=== PATIENT | female | born 1995 | race Caucasian/White ===

== ENCOUNTER 2017-04-29 19:49 | Emergency (ER) | payer OTHER ==
[2017-04-29 19:57] VITALS: BP 122/80
[2017-04-29] MEDS ORDERED: predniSONE 20 MG TABLET PO STA (20:09)
--- NOTE | 2017-04-29 20:13 | ED Physician Documentation ---
PD HPI SKIN - Stated complaint Stated Complaint: RASH - Chief complaint Chief Complaint: Wound - History obtained from History obtained from: Patient - History of Present Illness Timing - onset: How many days ago (3) Timing - duration: Days (3) Timing - details: Gradual onset Pain level max: 1 Pain level now: 1 Location: Other (R inguinal fold) Quality / character: Itchy, Painful, Discolored (erythematous) Improved by: Other (hasn't tried anything) Worsened by (comment): COMMENT (nothing) Associated symptoms: No: Fever, Myalgias, Joint pain, Headache, Facial swelling , Dyspnea, Abd pain, N/V/D Contributing factors: No: Exposed to medication, Exposed to food, Exposed to soap / lotion, Exposed to Poison ashley/oak, Insect bite /sting, Recent illness Similar symptoms before: Has not had sx before Recently seen: Not recently seen Review of Systems : denies: Now [facility] PD PAST MEDICAL HISTORY - Past Medical History Past Medical History: No - Past Surgical History Past Surgical History: No - Present Medications Home Medications: Ambulatory Orders Medication Instructions Recorded Confirmed Bacterial Vaginosis Medication 04/29/17 Control Pill 04/29/17 Nystatin/Triamcin 1 applic TP BID #1 cream..g. 04/29/17 [Nystatin-Triamcinolone Cream] - Allergies Allergies/Adverse Reactions: Allergies Allergy/AdvReac Type Severity Reaction Status Date / Time No Known Drug Allergies Allergy Verified 04/29/17 19:54 - Social History Does the pt smoke?: No Smoking Status: Never smoker Does the pt drink ETOH?: No Does the pt have substance abuse?: No - Immunizations Immunizations are current?: Yes - POLST Patient has POLST: No PD ED PE NORMAL - Vitals Vital signs reviewed: Yes - General General: Alert and oriented X 3, No acute distress - Derm Derm: Warm and dry, Other (erythematous, raised rash to the R inguinal fold. Satellite lesions present. no vesicles, no pustules, no crusting.) - Neuro Neuro: Alert and oriented X 3 - Psych Psych: Normal mood, Normal affect Results - Vitals Vitals: Vital Signs - 24 hr 04/29/17 19:52 Temperature 36.7 C Heart Rate 64 Respiratory 17 Rate Blood Pressure 122/80 O2 Saturation 100 Oxygen O2 Source Room air PD MEDICAL DECISION MAKING - ED course Complexity details: considered differential, d/w patient ED course: Patient presents to the emergency department with a rash to the right inguinal fold, appears to be a candidal rash. Will place on nystatin for home with her doctor. She is well-appearing, nontoxic. Afebrile. No evidence of secondary infection. Patient is not , breast-feeding or trying to become . Patient counseled regarding signs and symptoms for which I believe and urgent re-evaluation would be necessary. Patient with good understanding of and agreement to plan and is comfortable going home at this time This document was made in part using voice recognition software. While efforts are made to proofread this document, sound alike and grammatical errors may occur. Departure - Departure Disposition: 01 Home, Self Care Clinical Impression: Candidiasis Condition: Good Instructions: ED Candidiasis Cutaneous Follow-Up: Khari Sainz DO [Primary Care Provider] - Within 1 week Prescriptions: Nystatin/Triamcin [Nystatin-Triamcinolone Cream] 1 applic TP BID #1 cream..g. Comments: Return if you worsen. Discharge Date/Time: 04/29/17 20:20
[2017-04-29] MEDS ORDERED: predniSONE 20 MG TABLET ONE (20:14)
== END 2017-04-29 20:20 | disposition home or self-care (01) ==
LOC: ED 19:49
DX: B37.9 Candidiasis, unspecified (principal)
CPT/HCPCS: 99283; J7512

== ENCOUNTER 2017-09-15 15:42 | Emergency (ER) | payer OTHER ==
[2017-09-15] MEDS ORDERED: PROCHLORPERAZINE 10 MG/2 ML VIAL IVP STA (18:06)
[2017-09-15] MEDS ORDERED: diphenhydrAMINE INJ 50 MG/ML VIAL IVP STA (18:06)
[2017-09-15] MEDS ORDERED: KETOROLAC 60 MG/2 ML VIAL IVP STA (18:06)
[2017-09-15] MEDS ORDERED: SODIUM CHLORIDE 0.9% 1,000 ML IV ONE (18:06)
--- NOTE | 2017-09-15 18:08 | ED Physician Documentation ---
History of Present Illness - Stated complaint Stated Complaint: VOMITING, LEIJA - Chief complaint Chief Complaint: Abd Pain - History obtained from History obtained from: Patient, Family - History of Present Illness Timing: Today Pain level max: 8 Pain level now: 8 Improved by: dark room Worsened by: light, noise - Additonal information Additional information: L sided headache, states similar to prior migraines, began vomiting so did not take any meds [employer]. Review of Systems Ten Systems: 10 systems reviewed and negative Constitutional: denies: Fever, Chills Eyes: reports: Photophobia Ears: denies: Ear pain Nose: denies: Rhinorrhea / runny nose, Congestion Throat: denies: Sore throat Cardiac: denies: Chest pain / pressure Respiratory: denies: Cough GI: denies: Abdominal Pain, Nausea, Vomiting, Diarrhea Skin: denies: Rash Musculoskeletal: denies: Neck pain, Back pain Neurologic: denies: Headache PD PAST MEDICAL HISTORY - Past Medical History Past Medical History: No - Past Surgical History Past Surgical History: No - Present Medications Home Medications: Ambulatory Orders Medication Instructions Recorded Confirmed Bacterial Vaginosis Medication 04/29/17 Control Pill 04/29/17 Nystatin/Triamcin 1 applic TP BID #1 cream..g. 04/29/17 [Nystatin-Triamcinolone Cream] - Allergies Allergies/Adverse Reactions: Allergies Allergy/AdvReac Type Severity Reaction Status Date / Time No Known Drug Allergies Allergy Verified 09/15/17 16:02 - Living Situation Living Situation: reports: With family Living Arrangement: reports: At home - Social History Does the pt smoke?: No Smoking Status: Never smoker Does the pt drink ETOH?: No Does the pt have substance abuse?: No - Immunizations Immunizations are current?: Yes - POLST Patient has POLST: No PD ED PE NORMAL - Vitals Vital signs reviewed: Yes - General General: Alert and oriented X 3, No acute distress - HEENT HEENT: Atraumatic, PERRL, EOMI, Moist mucous membranes - Neck Neck: Supple, no meningeal sign - Cardiac Cardiac: RRR - Respiratory Respiratory: No respiratory distress, Clear bilaterally - Abdomen Abdomen: Soft, Non tender, Non distended - Derm Derm: Warm and dry - Neuro Neuro: Alert and oriented X 3, instrument and 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 Resolved with Toradol, Benadryl and Compazine. Given IV fluids as well. Tolerating p.o. without difficulty. Will follow up with her doctor for further evaluation and care. Patient counseled regarding signs and symptoms for which I believe and urgent re-evaluation would be necessary. Patient with good understanding of and agreement to plan and is comfortable going home at this time This document was made in part using voice recognition software. While efforts are made to proofread this document, sound alike and grammatical errors may occur. Departure - Departure Disposition: 01 Home, Self Care Clinical Impression: Migraine Qualifiers: Migraine type: unspecified Status migrainosus presence: without status migrainosus Intractability: not intractable Qualified Code(s): G43.909 - Migraine, unspecified, not intractable, without status migrainosus Condition: Good Instructions: ED Headache Migraine Follow-Up: Khari Sainz DO [Primary Care Provider] - Within 1 week Comments: Do not drive or operate heavy machinery for at least the next 12 hours. Return if you worsen. Discharge Date/Time: 09/15/17 19:28
[2017-09-15 19:17] VITALS: BP 123/82
== END 2017-09-15 19:28 | disposition home or self-care (01) ==
LOC: ED 15:42
DX: G43.909 Migraine, unspecified, not intractable, without status migrainosus (principal)
CPT/HCPCS: 96361; 96374; 96375; 99283; 99284

== ENCOUNTER 2017-09-15 21:47 | Emergency (ER) | payer OTHER ==
[2017-09-15 21:53] VITALS: BP 111/71
--- NOTE | 2017-09-15 22:06 | ED Physician Documentation ---
PD HPI FEMALE - Stated complaint Stated Complaint: FREQ URINATION - Chief complaint Chief Complaint: UTI - History obtained from History obtained from: Patient, Family - History of Present Illness Timing - onset: How many hours ago (1) Timing - duration: Hours (1) Timing - details: Abrupt onset Pain level max: 9 Pain level max: 9 Associated symptoms: Dysuria, Urinary frequency. No: Fever, Abdominal pain, Back pain, Pelvic pain, Vaginal pain, Vaginal bleeding, Vaginal discharge Contributing factors: No: Similar symptoms before: Diagnosis (UTI) Recently seen: Emergency Dept (seen here earlier for migraine headache) Review of Systems Constitutional: denies: Fever, Chills Respiratory: denies: Cough GI: denies: Abdominal Pain, Vomiting, Diarrhea : reports: Dysuria, Frequency, Hesitancy PD PAST MEDICAL HISTORY - Past Medical History Past Medical History: No - Past Surgical History Past Surgical History: No - Present Medications Home Medications: Ambulatory Orders Medication Instructions Recorded Confirmed Control Pill 04/29/17 Nitrofurantoin Monohyd/M-Cryst 100 mg PO BID #10 capsule 09/15/17 [Macrobid 100 mg Capsule] Phenazopyridine HCl [Pyridium] 200 mg PO TID PRN #6 tablet 09/15/17 - Allergies Allergies/Adverse Reactions: Allergies Allergy/AdvReac Type Severity Reaction Status Date / Time No Known Drug Allergies Allergy Verified 09/15/17 21:53 - Social History Does the pt smoke?: No Smoking Status: Never smoker Does the pt drink ETOH?: No Does the pt have substance abuse?: No - Immunizations Immunizations are current?: Yes - POLST Patient has POLST: No PD ED PE NORMAL - Vitals Vital signs reviewed: Yes - General General: Alert and oriented X 3, No acute distress - Neck Neck: Supple, no meningeal sign - Cardiac Cardiac: RRR - Respiratory Respiratory: No respiratory distress, Clear bilaterally - Abdomen Abdomen: Soft, Non tender, Non distended - Back Back: No CVA TTP - Derm Derm: Warm and dry - Neuro Neuro: Alert and oriented X 3 Results - Vitals Vitals: Vital Signs - 24 hr 09/15/17 21:50 Temperature 36.5 C Heart Rate 100 Respiratory 18 Rate Blood Pressure 111/71 O2 Saturation 99 Oxygen O2 Source Room air - Labs Labs: Laboratory Tests 09/15/17 22:00 Urine Color YELLOW Urine Clarity HAZY Urine pH 6.5 Ur Specific [place] >=1.030 H Urine Protein 100 H Urine Glucose (UA) NEGATIVE Urine Ketones 15 H Urine Occult Blood TRACE-INTA Urine Nitrite NEGATIVE Urine Bilirubin NEGATIVE Urine Urobilinogen 0.2 (NORMAL) Ur Leukocyte Esterase NEGATIVE Urine RBC 0-5 Urine WBC 11-25 H Ur Squamous Epith Cells MANY Squamous H Urine Bacteria Many H Ur Microscopic Review INDICATED Urine Culture Comments NOT INDICATED Urine HCG, Qual NEGATIVE PD MEDICAL DECISION MAKING - ED course Complexity details: reviewed results, re-evaluated patient, considered differential, d/w patient, d/w family ED course: Patient is a 22-year-old female who presents to the emergency department with what appear to be UTI symptoms. Urine is cloudy and consistent with UTI. Will place on antibiotics for home and have her follow-up with her doctor. No evidence of pyelonephritis. Patient counseled regarding signs and symptoms for which I believe and urgent re-evaluation would be necessary. Patient with good understanding of and agreement to plan and is comfortable going home at this time This document was made in part using voice recognition software. While efforts are made to proofread this document, sound alike and grammatical errors may occur. Departure - Departure Disposition: 01 Home, Self Care Clinical Impression: Urinary tract infection Qualifiers: Urinary tract infection type: acute cystitis Hematuria presence: without hematuria Qualified Code(s): N30.00 - Acute cystitis without hematuria Condition: Good Instructions: ED UTI Cystitis Female Follow-Up: Khari Sainz DO [Primary Care Provider] - As Needed Prescriptions: Nitrofurantoin Monohyd/M-Cryst [Macrobid 100 mg Capsule] 100 mg PO BID #10 capsule Phenazopyridine HCl [Pyridium] 200 mg PO TID PRN #6 tablet PRN Reason: dysuria Comments: Take all antibiotics until gone. Return if you worsen. Discharge Date/Time: 09/15/17 22:16
[2017-09-15] MEDS ORDERED: NITROFURANTOIN MACRO 100 MG CAPSULE PO STA (22:11)
[2017-09-15] MEDS ORDERED: PHENAZOPYRIDINE 100 MG TABLET PO STA (22:11)
[2017-09-15 22:17] LABS: GLUCOSE, URINE (UA) NEGATIVE (NEGATIVE); KETONES,URINE (UA) 15 mg/dL (NEGATIVE); LEUKOCYTE ESTERASE, URINE NEGATIVE (NEGATIVE); NITRITE,URINE NEGATIVE (NEGATIVE); OCCULT BLOOD,URINE TRACE-INTA (NEGATIVE); PH,URINE 6.5 PH (5.0-7.5); PROTEIN,URINE 100 mg/dL (NEGATIVE); UROBILINOGEN,URINE 0.2 (NORMAL) E.U./dL (NORMAL)
[2017-09-15 22:24] LABS: CLARITY,URINE HAZY (CLEAR)
[2017-09-15 22:33] LABS: BILIRUBIN,URINE NEGATIVE (NEGATIVE); HCG UR QUAL NEGATIVE; ICTOTEST,URINE NEGATIVE
[2017-09-15 22:51] LABS: BACTERIA,URINE Many /HPF (None Seen); RBC,URINE 0-5 /HPF (0-5); SQUAMOUS EPITHELIAL CELL,UR MANY Squamous (<= Few)
== END 2017-09-15 22:16 | disposition home or self-care (01) ==
LOC: ED 21:47
DX: N30.00 Acute cystitis without hematuria (principal); G43.909 Migraine, unspecified, not intractable, without status migrainosus
CPT/HCPCS: 81001; 81025; 96361; 96374; 96375; 99283; 99284; A9270; 81003; 87086

== ENCOUNTER 2023-07-17 12:30 | Outpatient (CLI) | payer OTHER ==
--- NOTE | 2023-07-18 15:57 | Ultrasound Report ---
LIMITED ULTRASOUND OF LEFT BREAST: 07/17/2023 CLINICAL: Occasional left breast pain. No prior exams were available for comparison. Color flow and real-time ultrasound of the left breast 3-4 o'clock region were performed. Vidal scal e images of the real-time examination were reviewed. No sonographic abnormalities in the left breast at the indicated areas of pain. IMPRESSION: NEGATIVE There are no abnormalities seen in the left breast to correspond with the pain at 3 and 4 o'clock whi ch is consistent with normal fibroglandular tissue. The patient should follow up with her primary care doctor for the symptoms. Screening mammography beginning at age 40 is recommended. Findings and recommendations were conveyed to the patient at time of exam. This exam was interpreted at Station ID: [id number]. Electronically Signed By: Akilah bain/:07/17/2023 13:35:12 letter sent: No_Letter Ultrasound BI-RADS: 1 Negative BI-RADS CATEGORY: (1) - 1 Unspecified - other recall n/a LATERALITY: (B)
== END 2023-07-17 12:31 | disposition home or self-care (01) ==
LOC: DI 12:30
PROVIDERS: ATTEND Family Medicine
DX: N64.4 Mastodynia (principal)

== ENCOUNTER 2023-07-23 07:16 | Outpatient (CLI) | payer OTHER ==
[2023-07-23 12:16] LABS: THYROID STIMULATING HORMONE 2.55 uIU/mL (0.34-5.60)
[2023-07-23 12:22] LABS: PROLACTIN 11.11 ng/mL
== END 2023-07-23 07:17 | disposition home or self-care (01) ==
LOC: LAB.N 07:16
PROVIDERS: ATTEND Family Medicine
DX: H53.9 Unspecified visual disturbance (principal); R53.83 Other fatigue
CPT/HCPCS: 36415; 84146; 84443

== ENCOUNTER 2023-07-23 07:45 | Outpatient (CLI) | payer OTHER ==
[2023-07-23 21:11] LABS: BACTERIAL VAGINOSIS DNA NEGATIVE (NEGATIVE); CANDIDA GLABRATA DNA NEGATIVE (NEGATIVE); CANDIDA GROUP DNA NEGATIVE (NEGATIVE); CANDIDA KRUSEI DNA NEGATIVE (NEGATIVE); TRICHOMONAS VAGINALIS DNA NEGATIVE (NEGATIVE)
[2023-07-23 22:22] LABS: CHLAMYDIA TRACHOMATIS DNA NEGATIVE (NEGATIVE); NEISSERIA GONORRHOEAE DNA NEGATIVE (NEGATIVE)
== END 2023-07-23 08:00 | disposition home or self-care (01) ==
LOC: LAB.N 07:45
PROVIDERS: ATTEND Physician Assistant Medical
DX: N89.8 Other specified noninflammatory disorders of vagina (principal); H53.9 Unspecified visual disturbance; R53.83 Other fatigue
CPT/HCPCS: 36415; 81514; 84146; 84443; 87491; 87591; 87661

== ENCOUNTER 2023-08-02 07:47 | Outpatient (CLI) | payer OTHER ==
--- NOTE | 2023-08-04 08:25 | MRI Report ---
PROCEDURE: BRAIN WO INDICATIONS: HOMONYMOUS FIELD DEFECTS TECHNIQUE: Noncontrast axial T1 spin echo, axial T2 fast spin echo, sagittal and axial FLAIR, coronal T2 fast sp in echo, axial gradient echo, axial diffusion and ADC through the brain. COMPARISON: None. FINDINGS: Image quality: Excellent. CSF Spaces: Basal cisterns are patent. No extra-axial fluid collections. Ventricles are normal in size and shape. Brain: No intracranial masses or hemorrhage. Vidal/white matter interface is normal. Brainstem appe ars normal. Diffusion-weighted images demonstrate no acute ischemic insult. No chronic ischemic ins ults. Normal intravascular flow voids are present. Skull and face: Calvarium has normal marrow signal. Orbits appear normal. Sinuses: Small right maxillary sinus retention cyst. Mild bilateral ethmoid sinus mucosal thickening. Sinuses and mastoids are otherwise clear. IMPRESSION: 1. No acute process. 2. No explanation for visual field defect. 3. No recent infarct. Reviewed by: Bri Multani MD on 08/04/2023 8:24 AM [facility] Approved by: Bri Multani MD on 08/04/2023 8:24 AM [facility] Station ID: [id number]
== END 2023-08-02 07:48 | disposition home or self-care (01) ==
LOC: DI 07:47
PROVIDERS: ATTEND Family Medicine
DX: H53.462 Homonymous bilateral field defects, left side (principal); H53.461 Homonymous bilateral field defects, right side

== ENCOUNTER 2024-04-27 10:23 | Emergency (ER) | payer OTHER ==
[2024-04-27 11:40] LABS: BASOPHILS # (AUTO) 0.1 10^3/uL (0.0-0.1); BASOPHILS % (AUTO) 0.8 %; EOSINOPHILS # (AUTO) 0.1 10^3/uL (0.0-0.7); EOSINOPHILS % (AUTO) 1.7 %; HCT - HEMATOCRIT 40.2 % (37.0-47.0); HGB - HEMOGLOBIN 13.5 g/dL (12.0-16.0); LYMPHOCYTES # (AUTO) 1.8 10^3/uL (1.5-3.5); LYMPHOCYTES % (AUTO) 29.4 %; MEAN CORPUSCULAR HEMOGLOBIN 30.8 pg (27.0-31.0); MEAN CORPUSCULAR HGB CONC 33.6 g/dL (32.0-36.0); MEAN CORPUSCULAR VOLUME 91.6 fL (81.0-99.0); MEAN PLATELET VOLUME 9.3 fL (7.9-10.8); MONOCYTES # (AUTO) 0.5 10^3/uL (0.0-1.0); MONOCYTES % (AUTO) 7.6 %; NEUTROPHILS # (AUTO) 3.6 10^3/uL (1.5-6.6); NEUTROPHILS % (AUTO) 60.2 %; PLT - PLATELET COUNT 268 10^3/uL (130-450); RED BLOOD COUNT 4.39 10^6/uL (4.20-5.40); RED CELL DISTRIBUTION WIDTH 11.7 % (12.0-15.0)
[2024-04-27 11:54] LABS: ALBUMIN 4.7 g/dL (3.2-5.5); ALBUMIN/GLOBULIN RATIO 1.5 (1.0-2.2); BILIRUBIN,TOTAL 0.5 mg/dL (0.2-1.0); CALCIUM 9.8 mg/dL (8.5-10.3); CREATININE 0.6 mg/dL (0.6-1.3); POTASSIUM 3.7 mmol/L (3.5-4.5); TOTAL PROTEIN 7.8 g/dL (6.4-8.9)
--- NOTE | 2024-04-27 12:35 | ED Physician Documentation ---
PD HPI ABD PAIN - Stated complaint Stated Complaint: ABX PX - Chief complaint Chief Complaint: Abd Pain - History obtained from History obtained from: Patient - History of Present Illness Timing - onset: How many weeks ago (1) Timing - duration: Weeks (1) Timing - details: Gradual onset, Still present, Constant Quality: Aching, Pain Location: Epigastric Radiation: No: Chest, Upper back Improved by: No: Eating, Meds (tried Tums and antacids without improvement.) Worsened by: No: Eating Associated symptoms: Nausea. No: Fever, Diarrhea, Constipation, Melena Recently seen: Clinic (went to clinic and Dx with likely GERD, to use antacids. No Rx or other meds suggested. Pt states continued pains and nausea since that without change.) Review of Systems Constitutional: denies: Fever, Chills GI: reports: Abdominal Pain, Nausea. 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 : None HEENT: None Psych: None Musculoskeletal: None Derm: None - Past Surgical History Past Surgical History: Yes HEENT: Rhinoplasty - Present Medications Home Medications: Ambulatory Orders Medication Instructions Recorded Confirmed Control Pill 04/29/17 Nitrofurantoin Monohyd/M-Cryst 100 mg PO BID #10 capsule 09/15/17 [Macrobid 100 mg Capsule] Phenazopyridine HCl [Pyridium] 200 mg PO TID PRN #6 tablet 09/15/17 HYDROcod/ACETAM 5/325 [Andrews 5/325] 1 ea PO Q6H PRN #14 tablet 04/27/24 Ondansetron Odt [Zofran] 4 mg TL Q6H PRN #20 tablet 04/27/24 Pantoprazole [Protonix] 40 mg PO DAILY 30 Days #30 tablet 04/27/24 Sucralfate [Carafate] 1 gm PO ACHS 7 Days #280 ml 04/27/24 - Allergies Allergies/Adverse Reactions: Allergies Allergy/AdvReac Type Severity Reaction Status Date / Time No Known Drug Allergies Allergy Verified 04/27/24 11:13 - Social History Does the pt smoke?: No Smoking Status: Never smoker Does the pt drink ETOH?: No Does the pt have substance abuse?: No - Immunizations Immunizations are current?: Yes - POLST Patient has POLST: No PD ED PE NORMAL - Vitals Vital signs reviewed: Yes - General General: Alert and oriented X 3, Well developed/nourished - Cardiac Cardiac: RRR, No murmur - Respiratory Respiratory: No respiratory distress, Clear bilaterally - Abdomen Abdomen: Normal bowel sounds, Soft, Non distended, No organomegaly, Other (tender epigastric area with some guarding. Some tender RUQ but not mainly. Lower abd not tender. ) Results - Vitals Vitals: Vital Signs - 24 hr 04/27/24 04/27/24 04/27/24 11:14 12:42 14:10 Temperature 37 C Heart Rate 73 67 72 Respiratory 16 16 16 Rate Blood Pressure 119/80 128/85 H 102/77 O2 Saturation 100 99 99 04/27/24 15:40 Temperature 37 C Heart Rate 76 Respiratory 16 Rate Blood Pressure 112/72 O2 Saturation 100 Oxygen O2 Source Room air - Labs Labs: Laboratory Tests 04/27/24 04/27/24 04/27/24 11:36 11:36 11:36 WBC 6.0 RBC 4.39 Hgb 13.5 Hct 40.2 MCV 91.6 MCH 30.8 MCHC 33.6 RDW 11.7 L Plt Count 268 MPV 9.3 Neut # (Auto) 3.6 Lymph # (Auto) 1.8 Owen # (Auto) 0.5 Eos # (Auto) 0.1 Baso # (Auto) 0.1 Absolute Nucleated RBC 0.00 Nucleated RBC % 0.0 Sodium 138 Potassium 3.7 Chloride 103 Carbon Dioxide 30 Anion Gap 5.0 L BUN 15 Creatinine 0.6 Estimated GFR (MDRD) 118 Glucose 91 Calcium 9.8 Total Bilirubin 0.5 AST 16 ALT 20 Alkaline Phosphatase 79 Total Protein 7.8 Albumin 4.7 Globulin 3.1 Albumin/Globulin Ratio 1.5 Lipase 25 Urine Color YELLOW Urine Clarity CLEAR Urine pH 6.0 Ur Specific [place] 1.015 Urine Protein NEGATIVE Urine Glucose (UA) NEGATIVE Urine Ketones NEGATIVE Urine Occult Blood TRACE-LYSE Urine Nitrite NEGATIVE Urine Bilirubin NEGATIVE Urine Urobilinogen 0.2 (NORMAL) Ur Leukocyte Esterase NEGATIVE Ur Microscopic Review NOT INDICATED Urine Culture Comments NOT INDICATED Urine HCG, Qual NEGATIVE - Rads (name of study) abd/pelvic CT Relevant Findings:: Prelim report reviewed, EMP independent interpretation of test (no acute process seen. ) PD Medical Decision Making - ED course Complexity details: reviewed results (LFTs and lipase normal. CT did not show acute process. With that, I would assume gastritis/ulcer/duodenitis. She did not feel need for BM here in ER, so gave spec cup to bring to PCP f/u, to test for h.pylori.), re-evaluated patient (improved with meds of Zofran, tylenol, lido viscous. Subsequently given carafate and pantoprazole. ), considered differential, d/w patient Departure - Departure Disposition: Home, Self Care Clinical Impression: Abdominal pain Qualifiers: Abdominal location: epigastric Qualified Code(s): R10.13 - Epigastric pain Condition: Stable Instructions: ED PUD Vs Gastritis, ED Epigastric Pain [facility] Follow-Up: Sandra Grant ARNP [Primary Care Provider] - Prescriptions: Sucralfate [Carafate] 1 gm PO ACHS 7 Days #280 ml HYDROcod/ACETAM 5/325 [Andrews 5/325] 1 ea PO Q6H PRN #14 tablet PRN Reason: Pain Pantoprazole [Protonix] 40 mg PO DAILY 30 Days #30 tablet Ondansetron Odt [Zofran] 4 mg TL Q6H PRN #20 tablet PRN Reason: Nausea / Vomiting Comments: Your CT scan did not show any acute abnormality. This certainly does not mean your not having pains there we just need to consider causes that would not be visible on the blood tests or CT scan. The idea of a ulcer in the stomach or duodenum often does not show on scanning images. Will treat it as such with a combination of acid reducing medicine daily for the next month called pantoprazole along with medication to coat your stomach lining several times daily initially for the next 5 or 6 days and then at nighttime in particular for another week or so. In addition you can use Tylenol every 4-6 hours if needed for pain. You can use the lidocaine numbing medicine combined with antacid such as Maalox or Mylanta if needed through the day as well. Avoid anti-inflammatory such as ibuprofen and naproxen. Sometimes a ulcer type condition can result from a infection in the stomach lining. We did not not need to have a bowel movement here in the ER today but on a follow-up visit to your primary care, the night or day of going to the appointment, you can bring us stool sample for which they can test for the H. pylori bacteria. I sent your prescriptions to your preferred pharmacy. I did prescribe ondansetron for nausea and if you need for worse pain, hydrocodone/acetaminophen. Return if worsening despite the above medications. Try to get a follow-up appointment with your primary care later this week or early next week, call today or tomorrow for an appointment. I am prescribing a short course of narcotic pain medication for you. These are potentially dangerous and addictive medications that should be used carefully. These medications may constipate you. Take an viei-tid-ekumnty stool softener such as docusate twice daily with plenty of water while taking these medications. If you go 24 hours without a bowel movement, take [id number] MiraLAX, per package instructions. Do not drink or drive while taking these medications. If you received narcotic or sedating medications while in the emergency department do not drive for 24 hours. Store this medication in a safe, secure place and out of reach of children. It is a violation of federal law to give or sell this medication to another person or to use in a manner other than prescribed. The ED will not refill narcotic prescriptions, including prescriptions lost or stolen. You can dispose of unwanted medications at the [facility]'s office or at several pharmacies such as [facility]. Forms: PCP List Discharge Date/Time: 04/27/24 15:50
[2024-04-27 12:47] LABS: BILIRUBIN,URINE NEGATIVE (NEGATIVE); GLUCOSE, URINE (UA) NEGATIVE (NEGATIVE); KETONES,URINE (UA) NEGATIVE (NEGATIVE); LEUKOCYTE ESTERASE, URINE NEGATIVE (NEGATIVE); NITRITE,URINE NEGATIVE (NEGATIVE); OCCULT BLOOD,URINE TRACE-LYSE (NEGATIVE); PROTEIN,URINE NEGATIVE (NEGATIVE); UROBILINOGEN,URINE 0.2 (NORMAL) E.U./dL (NORMAL)
[2024-04-27 12:48] LABS: CLARITY,URINE CLEAR (CLEAR)
[2024-04-27 12:49] LABS: HCG UR QUAL NEGATIVE
[2024-04-27] MEDS ORDERED: iohexoL-300 100 ML VIAL ONE (13:28)
[2024-04-27] MEDS: iohexoL-300 100 ML VIAL IVP ONE (14:36)
--- NOTE | 2024-04-27 14:48 | CT Report ---
PROCEDURE: Abdomen/Pelvis W INDICATIONS: upper abd pain for a week CONTRAST: Omni 300 100ml TECHNIQUE: After the administration of intravenous contrast, a CT scan of the abdomen and pelvis was performed. Images were recorded and evaluated at appropriate window settings. Reformats: coronal and sagittal. F or radiation dose reduction, the following was used: automated exposure control, adjustment of mA and /or kV according to patient size. COMPARISON: None. FINDINGS: Image quality: Diagnostic. Lower chest: Unremarkable. Liver: No solid mass. Mild diffuse hepatic steatosis. Gallbladder: No radiopaque stones or wall thickening. Biliary tree: No intrahepatic or extrahepatic dilation, accounting for age. Spleen: No splenomegaly. Pancreas: No pancreatic ductal dilation. Adrenals: No adrenal nodule. Kidneys and ureters: No hydronephrosis. No renal cystic lesion which requires follow up. No solid mas s. Stomach, bowel and peritoneum: No gastric or small bowel dilation. No abnormal wall thickening. No pa thologic free fluid. Lymph nodes: No central or retroperitoneal adenopathy. Vessels: No infrarenal aortic aneurysm. Patent portal vein. PELVIS Reproductive organs: IUD. Cystic bilateral adnexa Bladder: No abnormal wall thickening, accounting for underdistention. Pelvic lymph nodes: No pelvic adenopathy by size criteria. Bones: No aggressive osseous abnormality. Other: No significant ventral or inguinal hernia. IMPRESSION: 1. Mild diffuse hepatic steatosis. 2. No acute abdominal process. No findings which suggest acute gallbladder pathology. Reviewed by: Den Rodriguez MD on 04/27/2024 2:46 PM PDT Approved by: Den Rodriguez MD on 04/27/2024 2:46 PM PDT Station ID: [id number]
[2024-04-27] MEDS: ACETAMINOPHEN 325 MG TABLET PO STA (15:34)
[2024-04-27] MEDS: ONDANSETRON 4 MG/2 ML VIAL IVP STA (15:35)
[2024-04-27] MEDS: PANTOPRAZOLE 40 MG VIAL IVP STA (15:35)
[2024-04-27] MEDS: LIDOCAINE VISCOUS 2% 15 ML UDC MM STA (15:37)
[2024-04-27] MEDS: SUCRALFATE 1 GM/10 ML UDC PO STA (15:37)
[2024-04-27 15:44] VITALS: BP 112/72; O2SAT 100
== END 2024-04-27 15:50 | disposition home or self-care (01) ==
LOC: ED 10:23
DX: R10.13 Epigastric pain (principal); R11.0 Nausea; Z32.02 Encounter for pregnancy test, result negative
CPT/HCPCS: 36415; 74177; 80053; 81003; 81025; 83690; 85025; 96374; 99284; A9270; Q9967; 81001; 87086